=== PATIENT | male | born 1965 | race Two or more races ===

== ENCOUNTER 2018-03-29 20:47 | Emergency (ER) | payer OTHER ==
[~2018-03-29] VITALS: Ht 172.7 cm; Wt 117.9 kg
--- NOTE | 2018-03-29 21:03 | NUR ---
Dr. Littlejohn at bedside for MSE.
[2018-03-29] MEDS ORDERED: ONDANSETRON IV *ER 4 MG/2 ML VIAL IV ONE (21:15)
[2018-03-29] MEDS ORDERED: MECLIZINE HCL 25 MG TABLET PO ONE (21:15)
[2018-03-29] MEDS ORDERED: MECLIZINE HCL 25 MG TABLET ONE (21:24)
[2018-03-29] MEDS ORDERED: ONDANSETRON 4 MG/2 ML VIAL ONE (21:24)
--- NOTE | 2018-03-29 21:24 | NUR ---
Pt out of ER for CT.
[2018-03-29 21:27] LABS: BASOPHILS % (AUTO) 0.3 % (0.0-2.0); EOSINOPHILS # (AUTO) 0.1 K/uL (0.0-0.7); EOSINOPHILS % (AUTO) 0.6 % (0.0-7.0); HEMATOCRIT 43.8 % (36.7-47.1); HEMOGLOBIN 14.8 g/dL (12.5-16.3); LYMPHOCYTES # (AUTO) 1.4 K/uL (20.0-40.0); LYMPHOCYTES % (AUTO) 11.7 % (20.5-51.5); MEAN CORPUSCULAR HEMOGLOBIN 30.1 uug (23.8-33.4); MEAN CORPUSCULAR HGB CONC 34 g/dL (32.5-36.3); MEAN CORPUSCULAR VOLUME 89.1 fL (73.0-96.2); MONOCYTES # (AUTO) 0.5 K/uL (2.0-10.0); MONOCYTES % (AUTO) 4.1 % (0.0-11.0); NEUTROPHILS # (AUTO) 10.3 K/uL (1.8-8.9); NEUTROPHILS % (AUTO) 83.3 % (38.5-71.5); PLATELET COUNT (AUTO) 276 K/uL (152-348); RED BLOOD CELL COUNT(AUTO) 4.91 MIL/uL (4.06-5.63); WHITE BLOOD COUNT (AUTO) 12.4 K/uL (3.6-10.2)
--- NOTE | 2018-03-29 21:36 | NUR ---
Pt back to ER from CT.
[2018-03-29 21:38] LABS: CREATININE 1.4 mg/dL (0.6-1.3); POTASSIUM 3.7 mmol/L (3.5-5.1)
[2018-03-29 21:40] LABS: ETHANOL < 3 MG/DL (0-0)
--- NOTE | 2018-03-29 21:42 | NUR ---
Pt provided urine sample, sent to lab.
--- NOTE | 2018-03-29 22:02 | NUR ---
Pt states still nauseous but emesis has ceased.
[2018-03-29 22:07] LABS: *AMPHETAMINE, URINE NEGATIVE (NEGATIVE); *BARBITURATE, URINE NEGATIVE (NEGATIVE); *CANNABINOID, URINE POSITIVE (NEGATIVE); *COCCAINE, URINE NEGATIVE (NEGATIVE); *OPIATE, URINE NEGATIVE (NEGATIVE); *PHENCYCLIDINE SCREEN,URINE NEGATIVE (NEGATIVE)
[2018-03-29] MEDS ORDERED: METOCLOPRAMIDE HCL 10 MG/2 ML VIAL IV ONE (22:15)
[2018-03-29] MEDS ORDERED: IV NORMAL SALINE 1000 ML BAG IV ONE (22:15)
[2018-03-29] MEDS ORDERED: METOCLOPRAMIDE HCL 10 MG/2 ML VIAL ONE (22:19)
--- NOTE | 2018-03-29 22:53 | NUR ---
Pt states nausea has subsided but still has dry mouth.
--- NOTE | 2018-03-29 23:25 | NUR ---
Patient discharged to home in stable conditon. Written and verbal after care instructions given. Patient verbalizes understanding of instructions. Pt ambulated out of ER with steady gait, no acute signs of distress, VSS, all belongings taken, IV site discontinued.
[2018-03-29 23:26] VITALS: BP 119/78
== END 2018-03-29 23:26 | disposition home or self-care (01) ==
LOC: ER 20:49
DX: R42 Dizziness and giddiness (principal); F12.10 Cannabis abuse, uncomplicated; E78.5 Hyperlipidemia, unspecified; F17.200 Nicotine dependence, unspecified, uncomplicated
CPT/HCPCS: 36415; 70450; 80307; 85025; 85730; 93005; A4663; G0480; J2405; J2765; J7030; J8597